=== PATIENT | female | born 1970 | race African-American/Black ===

== ENCOUNTER 2019-02-10 07:30 | Inpatient (IN) ==
[2019-02-04 12:29] LABS: Basophils % 0.5 % (0.0-0.8); Eosinophils # 0.1 10*3/uL (0.0-0.87); Eosinophils % 0.6 % (0.00-10.9); Hematocrit 37.3 VOL% (35.7-47.0); Hemoglobin 12.2 GM/DL (12.0-16.0); Immature Granulocytes % 0.3 %; Immature Granulocytes Absolute 0.02 #; Lymphocytes # 2.8 10*3/uL (1.4-4.0); Lymphocytes % 34.8 % (21.3-54.2); Mean Corpuscular HGB Conc 32.7 GM/DL (32-36); Mean Corpuscular Hemoglobin 30 PG (27-34); Mean Corpuscular Volume 91.4 FL (87-102); Monocytes # 0.5 10*3/uL (0.11-0.8); Monocytes % 6.1 % (1.7-12.7); Neutrophils # 4.6 10*3/uL (1.4-7.4); Neutrophils % 57.7 % (38.7-73.9); Platelet Count 268 T/CUMM (130-400); Red Blood Count 4.08 MC/CUMM (3.8-5.5); Red Cell Distribution Width 12.9 % (9.3-17.3); White Blood Count 7.9 T/CUMM (4-12)
[2019-02-04 12:46] LABS: Apearance,Urine Slightly Hazy (Clear); Bacteria,Urine Occasional /HPF (Few); Bilirubin,Urine Negative (Negative); Blood, Urine Small mg/dL (Negative); Glucose,Urine (UA) Negative (Negative); Ketones,Urine Negative (Negative); Mucus,Urine Occasional /LPF (Occasional); Nitrite,Urine Negative (Negative); Protein,Urine Negative; RBC,Urine 2 /HPF (0-4); Squamous Epithelial Cell,Urine Occasional /HPF (0-10); Urine Color Yellow (Yellow); Urine Specific Gravity 1.009 (1.001-1.035); Urine Urobilinogen < 2.0 EU/DL (0.2-1.0); WBC,Urine 4 /HPF (0-6)
[2019-02-04 12:58] LABS: Alanine Aminotransferase 13 U/L (13-56); Albumin 3.7 G/DL (3.4-5.0); Alkaline Phosphatase 63 U/L (45-117); Aspartate Amino Transferase 10 U/L (0-37); Bilirubin,Total < 0.39 MG/DL (0.2-1.0); Blood Urea Nitrogen 5 MG/DL (7-18); Calcium 8.3 MG/DL (8.5-10.1); Cholesterol 236 MG/DL (50-200); Glucose 81 MG/DL (74-106); HDL Cholesterol 58 MG/DL (40-60); Osmolality,Calculated 268.8 MOS/KG (273-304); Risk Ratio 4.07; Sodium 137 MMOL/L (136-145); Triglycerides 117 MG/DL (2-150); VLDL CHOLESTEROL 23.4 MG/DL
[2019-02-04 13:46] LABS: HIV Antigen/Antibody Result Nonreactive (Nonreactive)
[2019-02-11] MEDS ORDERED: ceFAZolin 1,000 MG in SYRINGE 1 EACH IV ONE (06:00)
[2019-02-11] MEDS ORDERED: AMPICILLIN/SULBACTAM 3,000 MG VIAL ONE (06:04)
[2019-02-11] MEDS ORDERED: ACETAMINOPHEN 500 MG TABLET PO ONE (06:16)
[2019-02-11] MEDS ORDERED: GABAPENTIN 400 MG CAPSULE PO ONE (06:16)
[2019-02-11] MEDS: LACTATED RINGERS 1,000 ML IV SCH ×3 (06:29→17:31)
[2019-02-11] MEDS ORDERED: AMPICILLIN/SULBACTAM 3,000 MG in SODIUM CHLORIDE 0.9% 100 ML IV ONE (06:30)
[2019-02-11] MEDS ORDERED: MICROFIBRILLAR COLLAGEN POWDER 1 GM CAN TOP ONE (06:48)
[2019-02-11] MEDS ORDERED: BUPIVACAINE 0.5% 50 ML VIAL ONE ×2 (07:15→09:32)
[2019-02-11] MEDS ORDERED: EPINEPHrine 1 MG/ML VIAL ONE (07:15)
[2019-02-11] MEDS ORDERED: LIDOCAINE 1%/EPI INJ 20 ML VIAL ONE (09:32)
[2019-02-11] MEDS ORDERED: ceFAZolin 1,000 MG VIAL ONE (09:35)
[2019-02-11] MEDS ORDERED: PROPOFOL 200 MG/20 ML VIAL IV ONE (10:12)
[2019-02-11] MEDS ORDERED: SEVOFLURANE 1 UNIT/15 MINUTE INH ONE (10:12)
[2019-02-11] MEDS ORDERED: BISACODYL 10 MG SUPP RECTAL PRN (10:13)
[2019-02-11] MEDS ORDERED: ePHEDrine 50 MG/ML AMP ONE (10:13)
[2019-02-11] MEDS ORDERED: ACETAMINOPHEN 325 MG TABLET PO PRN (10:13)
[2019-02-11] MEDS ORDERED: BENZOCAINE/MENTHOL LOZENGE 18/BOX PO PRN (10:13)
[2019-02-11] MEDS ORDERED: SUFentanil 50 MCG/ML AMP ONE (10:13)
[2019-02-11] MEDS ORDERED: DEXAMETHASONE 4 MG/1 ML VIAL ONE (10:13)
[2019-02-11] MEDS ORDERED: ONDANSETRON 4 MG/2 ML VIAL IV PRN ×2 (10:13→10:20)
[2019-02-11] MEDS ORDERED: ONDANSETRON 4 MG/2 ML VIAL ONE (10:13)
[2019-02-11] MEDS ORDERED: KETOROLAC 30 MG/1 ML VIAL ONE (10:14)
[2019-02-11] MEDS ORDERED: ROCURONIUM 100 MG/10 ML VIAL IV ONE (10:14)
[2019-02-11] MEDS ORDERED: PHENYLEPHRINE 1 MG/10 ML SYRINGE IV ONE (10:14)
[2019-02-11] MEDS ORDERED: MIDAZOLAM 2 MG/2 ML VIAL ONE (10:15)
[2019-02-11] MEDS ORDERED: LACTATED RINGERS 1,000 ML IV ONE (10:15)
[2019-02-11] MEDS ORDERED: NEOSTIGMINE 10 MG/10 ML VIAL ONE (10:15)
[2019-02-11] MEDS ORDERED: GLYCOPYRROLATE 0.4 MG/2 ML VIAL ONE (10:15)
[2019-02-11] MEDS: HYDROmorphone 2 MG/1 ML VIAL IV PRN ×4 (10:40→21:19)
[2019-02-11] MEDS ORDERED: MEPERIDINE 25 MG/1 ML VIAL ONE (11:03)
[2019-02-11] MEDS: MEPERIDINE 25 MG/1 ML VIAL IV PRN ×2 (11:03→17:32)
[2019-02-11 11:34] LABS: Apearance,Urine CLEAR (Clear); Bacteria,Urine Occasional /HPF (Few); Bilirubin,Urine Negative (Negative); Blood, Urine Small mg/dL (Negative); Glucose,Urine (UA) Negative (Negative); Ketones,Urine Negative (Negative); Mucus,Urine Occasional /LPF (Occasional); Nitrite,Urine Negative (Negative); Protein,Urine Negative; RBC,Urine <1 /HPF (0-4); Squamous Epithelial Cell,Urine Occasional /HPF (0-10); Urine Color Yellow (Yellow); Urine Specific Gravity 1.008 (1.001-1.035); Urine Urobilinogen < 2.0 EU/DL (0.2-1.0)
[2019-02-11] MEDS: ceFAZolin 1,000 MG in SYRINGE 1 EACH IV SCH (15:45)
[2019-02-11 15:46] LABS: Basophils % 0.2 % (0.0-0.8); Hemoglobin 10.8 GM/DL (12.0-16.0); Immature Granulocytes % 0.6 %; Immature Granulocytes Absolute 0.09 #; Lymphocytes # 0.5 10*3/uL (1.4-4.0); Lymphocytes % 3.4 % (21.3-54.2); Mean Corpuscular HGB Conc 31.8 GM/DL (32-36); Mean Corpuscular Hemoglobin 30 PG (27-34); Mean Corpuscular Volume 93.4 FL (87-102); Mean Platelet Volume 8.9 FL (9.6-12.0); Monocytes # 0.5 10*3/uL (0.11-0.8); Monocytes % 2.9 % (1.7-12.7); Neutrophils # 14.6 10*3/uL (1.4-7.4); Neutrophils % 92.9 % (38.7-73.9); Platelet Count 217 T/CUMM (130-400); Red Blood Count 3.64 MC/CUMM (3.8-5.5); Red Cell Distribution Width 13.1 % (9.3-17.3); White Blood Count 15.7 T/CUMM (4-12)
[2019-02-11] MEDS: IBUPROFEN 800 MG TABLET PO PRN (15:52)
[2019-02-11 17:50] LABS: Lymphocytes 36 % (20-55); Segmented Neutrophils 54 % (50-85); Total Cells Counted 100
[2019-02-11 17:56] LABS: Hypochromasia Slight; Microcytosis Slight; Platelet Estimate Decreased
[2019-02-12] MEDS: ceFAZolin 1,000 MG in SYRINGE 1 EACH IV SCH (00:18)
[2019-02-12] MEDS: LACTATED RINGERS 1,000 ML IV SCH (02:13)
[2019-02-12] MEDS: IBUPROFEN 800 MG TABLET PO PRN ×2 (02:36→18:34)
[2019-02-12 04:59] LABS: Basophils % 0.1 % (0.0-0.8); Hemoglobin 9.8 GM/DL (12.0-16.0); Immature Granulocytes % 0.5 %; Immature Granulocytes Absolute 0.07 #; Lymphocytes # 1.9 10*3/uL (1.4-4.0); Lymphocytes % 14.4 % (21.3-54.2); Mean Corpuscular HGB Conc 31.6 GM/DL (32-36); Mean Corpuscular Hemoglobin 30 PG (27-34); Mean Corpuscular Volume 94.5 FL (87-102); Monocytes # 0.6 10*3/uL (0.11-0.8); Monocytes % 4.6 % (1.7-12.7); Neutrophils # 10.8 10*3/uL (1.4-7.4); Neutrophils % 80.4 % (38.7-73.9); Platelet Count 197 T/CUMM (130-400); Red Blood Count 3.28 MC/CUMM (3.8-5.5); Red Cell Distribution Width 13.1 % (9.3-17.3); White Blood Count 13.4 T/CUMM (4-12)
[2019-02-12] MEDS: DOCUSATE SODIUM 100 MG CAPSULE PO PRN ×2 (08:26→20:10)
[2019-02-12] MEDS: METOCLOPRAMIDE 10 MG TABLET PO SCH ×2 (08:26→16:18)
[2019-02-12] MEDS: MAGNESIUM HYDROXIDE SUSP 30 ML UDCUP PO PRN ×2 (10:04→20:10)
[2019-02-12] MEDS ORDERED: MAGNESIUM CITRATE 300 ML BOTTLE PO ONE (14:58)
[2019-02-12] MEDS ORDERED: SIMETHICONE CHEW 80 MG TABLET PO PRN (18:26)
[2019-02-13] MEDS: METOCLOPRAMIDE 10 MG TABLET PO SCH ×2 (06:46)
[2019-02-13] MEDS: IBUPROFEN 800 MG TABLET PO PRN (08:07)
== END 2019-02-13 11:45 | disposition home or self-care (01) | DRG 742 ==
LOC: N.SDSINP 02-11 05:47 → N.OB 02-11 11:16
PROVIDERS: ADMIT Obstetrics & Gynecology; ATTEND Obstetrics & Gynecology